=== PATIENT | male | born 1985 | race African-American/Black ===

== ENCOUNTER 2023-05-05 14:02 | Emergency (ER) | payer OTHER ==
[~2023-05-05] VITALS: Ht 188 cm; Wt 98.0 kg
[2023-05-05 14:08] VITALS: BP 126/86; PULSE 83; RESP 16; TEMP 98.6; O2SAT 99
== END 2023-05-05 15:14 | disposition home or self-care (01) ==
LOC: ER 14:02
DX: S01.81XA Laceration without foreign body of other part of head, initial encounter (principal); X58.XXXA Exposure to other specified factors, initial encounter; Y93.89 Activity, other specified; Y92.89 Other specified places as the place of occurrence of the external cause; Y99.8 Other external cause status
CPT/HCPCS: 12011; 99282